=== PATIENT | male | born 1970 | race Caucasian/White ===

== ENCOUNTER → 2017-08-21 | Outpatient (CLI) | payer BC ==
--- NOTE | 2017-08-21 09:24 | RAD ---
Left hand, 3 views, 08/21/2017: History: Injury There is mild deformity of the fifth metacarpal shaft compatible with an old healed fracture. No acute fracture or dislocation is identified. A tiny radiopaque foreign body in the soft tissues at the tip of the thumb is probably old. IMPRESSION: No acute bony abnormality is detected.
== END | disposition home or self-care (01) ==
LOC: DXRADRC 08:47
PROVIDERS: ATTEND General Practice
DX: S61.042A Puncture wound with foreign body of left thumb without damage to nail, initial encounter (principal); M20.092 Other deformity of left finger(s); X58.XXXA Exposure to other specified factors, initial encounter; Y93.89 Activity, other specified; Y92.89 Other specified places as the place of occurrence of the external cause; Y99.8 Other external cause status
CPT/HCPCS: 73130